=== PATIENT | male | born 1995 | race Caucasian/White ===

== ENCOUNTER 2020-10-08 20:16 | Emergency (ER) | payer MEDICAID ==
[~2020-10-08] VITALS: Ht 175.3 cm; Wt 80.0 kg
[2020-10-08 20:26] VITALS: BP 135/89
[2020-10-08] MEDS ORDERED: ALBU6.7H9 INH (21:16)
== END 2020-10-08 21:42 | disposition home or self-care (01) ==
LOC: ER 20:17
DX: U07.1 COVID-19 (principal); R50.9 Fever, unspecified; R05 Cough; R51.9 Headache, unspecified; R11.0 Nausea; R19.7 Diarrhea, unspecified; R10.84 Generalized abdominal pain; Z79.899 Other long term (current) drug therapy
CPT/HCPCS: 71045; 99283